=== PATIENT | male | born 1960 | race Caucasian/White ===

== ENCOUNTER 2023-03-20 12:08 | Emergency (ER) | payer BC, SELFPAY ==
[2023-03-20] VITALS (38 sets, daily range): BP systolic 113–160; BP diastolic 59–92; PULSE 29–141; RESP 12–29; TEMP 36.6; O2SAT 93–98; BMI 39.3
--- NOTE | 2023-03-20 12:23 | DI.RAD.S_ITS ---
PROCEDURE: XR CHEST 1V INDICATIONS: chest pain TECHNIQUE: One view of the chest was acquired. COMPARISON: None. FINDINGS: Surgical changes and devices: Median sternotomy wires are present and appear intact. If it related pad projects over the left chest Lungs and pleura: Lungs are clear. No pleural effusions or pneumothorax. Mediastinum: Mediastinal contours appear normal. Heart size is normal. Bones and chest wall: No suspicious bony lesions. Overlying soft tissues appear unremarkable. IMPRESSION: No acute cardiopulmonary abnormalities. Dictated by: Juventino Amaya M.D. on 03/20/2023 at 13:23 Approved by: Juventino Amaya M.D. on 03/20/2023 at 13:23
--- NOTE | 2023-03-20 12:49 | ED_ITS ---
HPI - Chest Pain <DO Rajni Kim Last Filed: 03/21/23 08:01> General Chief Complaint: Chest Pain Stated Complaint: artificial heart valve/chest pain Time Seen by Provider: 03/20/23 12:47 Source: patient Mode of arrival: Ambulatory Limitations: no limitations Limitations: no limitations History of Present Illness HPI narrative: This is a 63-year-old male with history of coronary artery disease with 2 stents in his LAD, prior aortic valve replacement with bovine valve and a AAA repair, patient also developed pulmonary emboli after his surgery and was on Coumadin for 3 months. Patient states he woke up this morning about 3:00 a.m. with left scapular pain radiating to the front left chest. He states not on the right side. He states he feels mildly short of breath. He is felt a little dizzy today. No nausea no vomiting. He denies any diaphoresis. He denies any issues with bowel movements or urination. No new swelling in his extremities. States he did notice Monday he had some double vision that was atypical and felt very lightheaded and went to [facility] where he was seen. Patient states heart rate tends to run in the 50-60 range he had 1 drop into the 28th during triage. He did feel symptomatic during that episode. Patient states these days he is on aspirin 81 mg daily, magnesium and potassium as well as losartan. He denies any active anti-lipid medication, no beta blockers or other antiarrhythmics. Patient states he is allergic to heparin he states he was on an alternative IV medication when he was in the hospital. This was when he was being converted to Coumadin. He no longer takes Coumadin daily he stopped after 3 months as recommended by his physician in his only on aspirin daily. No tobacco, alcohol or illicit. He lives in [place], he follows with [facility], operated by [facility] and his contact center specialist is Dr. Lofton. Related Data Allergies Allergy/AdvReac Type Severity Reaction Status Date / Time heparin Allergy Unknown Verified 03/20/23 12:21 Review of Systems <DO Rajni Kim Last Filed: 03/21/23 08:01> Review of Systems ROS Unobtainable: All systems reviewed & are unremarkable except as noted in HPI and below Patient History <DO Rajni Kim Last Filed: 03/21/23 08:01> Medical History (Updated 03/20/23 @ 17:37 by Jose Daniel Soria DO) CAD (coronary artery disease) Surgical History (Updated 03/20/23 @ 17:37 by Jose Daniel Soria DO) H/O aortic arch repair H/O aortic valve repair S/P coronary artery stent placement Social History Smoking Status: Never smoker Smoking Status: Never smoker Exam <Nettie Jordan DO - Last Filed: 03/21/23 08:01> Narrative Exam Narrative: GENERAL: Alert and oriented x three, obese male in mild distress HEENT: Head normocephalic, atraumatic, EOMI, pupils reactive, face symmetric, moist mucous membranes NECK: Supple, full range of motion CARDIOVASCULAR: Bradycardic but Regular rate and rhythm without murmurs, rubs or gallops. No JVD. No swelling bilateral lower extremities. RESPIRATORY: Breath sounds equal bilaterally, no wheezes rales or rhonchi. ABDOMEN: Soft, nontender. Nondistended. Normoactive bowel sounds all 4 quadrants. No guarding or rebound, rigidity, no mass : No CVA tenderness EXTREMITIES: Normal range of motion, no clubbing or edema. Neurovascularly intact NEUROLOGICAL: Cranial nerves II through XII grossly intact. Moving all extremities SKIN: Warm, dry, no petechiae, no rashes or lesions. Initial Vital Signs Initial Vital Signs: Vital Signs Temperature 97.9 F 03/20/23 12:15 Pulse Rate 64 03/20/23 12:15 Respiratory Rate 18 03/20/23 12:15 Blood Pressure 158/88 H 03/20/23 12:15 Pulse Oximetry 95 03/20/23 12:15 Oxygen Delivery Method Room Air 03/20/23 12:15 <Fer Addison DO - Last Filed: 03/21/23 03:12> Initial Vital Signs Initial Vital Signs: Vital Signs Temperature 97.9 F 03/20/23 12:15 Pulse Rate 64 03/20/23 12:15 Respiratory Rate 18 03/20/23 12:15 Blood Pressure 158/88 H 03/20/23 12:15 Pulse Oximetry 95 03/20/23 12:15 Oxygen Delivery Method Room Air 03/20/23 12:15 Course <Nettie Jordan DO - Last Filed: 03/21/23 08:01> Orders Ordered: Discontinued Medications Aspirin (Aspirin 81 Mg Chew Tab) 324 mg PO NOW ONE Stop: 03/20/23 12:24 Last Admin: 03/20/23 13:12 Dose: 162 mg Documented By: ST Atropine Sulfate (Atropine 1 Mg/10 Ml Syringe) 0.5 mg IV NOW ONE Stop: 03/20/23 13:08 Last Admin: 03/20/23 13:27 Dose: 0.5 mg Documented By: ST Sodium Chloride (Normal Saline 0.9%) 1,000 mls @ 150 mls/hr IV CONT KEDAR Last Infusion: 03/20/23 21:40 Dose: 0 mls/hr Documented By: Admin: 03/20/23 15:19 Dose: 150 mls/hr Documented By: Morphine Sulfate (Morphine 4 Mg/Ml Inj) 4 mg IV NOW ONE Stop: 03/20/23 13:07 Last Admin: 03/20/23 13:13 Dose: 4 mg Documented By: Morphine Sulfate (Morphine 4 Mg/Ml Inj) 4 mg IV NOW ONE Stop: 03/20/23 15:02 Last Admin: 03/20/23 15:13 Dose: 4 mg Documented By: Nitroglycerin (Nitroglycerin 0.4 Mg Sl Tab) 0.4 mg SL [id number] PRN PRN Reason: chest pain Vital Signs Vital signs: Vital Signs - 8 hr 03/20/23 19:30 03/20/23 19:31 03/20/23 19:31 Pulse Rate 44 L 42 L Respiratory Rate 29 H 18 Blood Pressure 115/59 L Pulse Oximetry 96 97 03/20/23 20:00 03/20/23 20:01 03/20/23 20:01 Pulse Rate 45 L 44 L Respiratory Rate 27 H 26 H Blood Pressure 140/64 Pulse Oximetry 96 96 03/20/23 20:30 03/20/23 21:00 03/20/23 21:06 Pulse Rate 42 L 74 Respiratory Rate 16 22 Blood Pressure 145/60 H Pulse Oximetry 94 94 03/20/23 21:06 Pulse Rate 50 L Respiratory Rate 14 Blood Pressure Pulse Oximetry 95 <DO Rajni Cornejo Last Filed: 03/21/23 03:12> Orders Ordered: Discontinued Medications Aspirin (Aspirin 81 Mg Chew Tab) 324 mg PO NOW ONE Stop: 03/20/23 12:24 Last Admin: 03/20/23 13:12 Dose: 162 mg Documented By: ST Atropine Sulfate (Atropine 1 Mg/10 Ml Syringe) 0.5 mg IV NOW ONE Stop: 03/20/23 13:08 Last Admin: 03/20/23 13:27 Dose: 0.5 mg Documented By: ST Sodium Chloride (Normal Saline 0.9%) 1,000 mls @ 150 mls/hr IV CONT KEDAR Last Infusion: 03/20/23 21:40 Dose: 0 mls/hr Documented By: Admin: 03/20/23 15:19 Dose: 150 mls/hr Documented By: ST Morphine Sulfate (Morphine 4 Mg/Ml Inj) 4 mg IV NOW ONE Stop: 03/20/23 13:07 Last Admin: 03/20/23 13:13 Dose: 4 mg Documented By: ST Morphine Sulfate (Morphine 4 Mg/Ml Inj) 4 mg IV NOW ONE Stop: 03/20/23 15:02 Last Admin: 03/20/23 15:13 Dose: 4 mg Documented By: ST Nitroglycerin (Nitroglycerin 0.4 Mg Sl Tab) 0.4 mg SL [id number] PRN PRN Reason: chest pain Vital Signs Vital signs: Vital Signs - 8 hr 03/20/23 19:30 03/20/23 19:31 03/20/23 19:31 Pulse Rate 44 L 42 L Respiratory Rate 29 H 18 Blood Pressure 115/59 L Pulse Oximetry 96 97 03/20/23 20:00 03/20/23 20:01 03/20/23 20:01 Pulse Rate 45 L 44 L Respiratory Rate 27 H 26 H Blood Pressure 140/64 Pulse Oximetry 96 96 03/20/23 20:30 03/20/23 21:00 03/20/23 21:06 Pulse Rate 42 L 74 Respiratory Rate 16 22 Blood Pressure 145/60 H Pulse Oximetry 94 94 03/20/23 21:06 Pulse Rate 50 L Respiratory Rate 14 Blood Pressure Pulse Oximetry 95 MDM - Chest Pain <Nettie Jordan DO - Last Filed: 03/21/23 08:01> Lab Data 03/20/23 12:39 03/20/23 12:39 Labs: Lab Results 03/20/23 03/20/23 03/20/23 Range/Units 12:39 12:39 12:39 WBC 4.5 (4.5-11.0) X10^3/uL RBC 4.89 (4.5-5.9) X10^6/uL Hgb 16.5 (13.5-17.5) g/dL Hct 46.1 (41-53) % MCV 94.3 (80-100) fL MCH 33.7 (26-34) PG MCHC 35.8 (30-36) % RDW 13.1 (11.6-14.8) % Plt Count 193 (150-400) X10^3/uL Neut % (Auto) 53.4 (50-75) % Lymph % (Auto) 31.7 (25-40) % Barber % (Auto) 13.3 (3-14) % Eos % (Auto) 1.0 L (2-4) % Baso % (Auto) 0.6 (0-2) % Neut # (Auto) 2400 (7464-7266) /uL Lymph # (Auto) 1400 (8586-3731) /uL Barber # (Auto) 600 (0-900) /uL Eos # (Auto) 0 (0-450) /uL Baso # (Auto) 0 (0-100) /uL PT 12.9 H (10.1-12.7) SECONDS INR 1.1 (0.9-1.3) APTT 26 (26-36) SECONDS D-Dimer (<500) ng/ml Sodium 135 L (137-145) mmol/L Potassium 4.0 (3.4-5.1) mmol/L Chloride 104 (98-107) mmol/L Carbon Dioxide 23 (22-32) mmol/L BUN 20 (9-20) mg/dL Creatinine 1.02 (0.66-1.25) mg/dL Estimated GFR > 60 (>60) mL/min BUN/Creatinine Ratio 19.6 (6-22) Glucose 101 (80-110) mg/dL Calcium 9.3 (8.4-10.2) mg/dL Magnesium 2.1 (1.6-2.3) mg/dL Total Bilirubin 1.3 (0.2-1.3) mg/dL AST 94 H (17-59) IU/L ALT 157 H (<50) IU/L Alkaline Phosphatase 80 (38-126) U/L Total Creatine Kinase 108 (55-170) U/L Troponin I < 0.012 (0.01-0.034) ng/mL NT-Pro-B Natriuret Pep (<125) pg/mL Total Protein 8.0 (6.3-8.2) g/dL Albumin 4.6 (3.5-5.0) g/dL Globulin 3.4 (1.7-4.1) g/dL Albumin/Globulin Ratio 1.4 (1.0-2.8) Lipase 120 (23-300) U/L 03/20/23 03/20/23 03/20/23 Range/Units 12:39 12:39 14:41 WBC (4.5-11.0) X10^3/uL RBC (4.5-5.9) X10^6/uL Hgb (13.5-17.5) g/dL Hct (41-53) % MCV (80-100) fL MCH (26-34) PG MCHC (30-36) % RDW (11.6-14.8) % Plt Count (150-400) X10^3/uL Neut % (Auto) (50-75) % Lymph % (Auto) (25-40) % Barber % (Auto) (3-14) % Eos % (Auto) (2-4) % Baso % (Auto) (0-2) % Neut # (Auto) (8810-9228) /uL Lymph # (Auto) (3032-2143) /uL Barber # (Auto) (0-900) /uL Eos # (Auto) (0-450) /uL Baso # (Auto) (0-100) /uL PT (10.1-12.7) SECONDS INR (0.9-1.3) APTT (26-36) SECONDS D-Dimer 1372 H (<500) ng/ml Sodium (137-145) mmol/L Potassium (3.4-5.1) mmol/L Chloride (98-107) mmol/L Carbon Dioxide (22-32) mmol/L BUN (9-20) mg/dL Creatinine (0.66-1.25) mg/dL Estimated GFR (>60) mL/min BUN/Creatinine Ratio (6-22) Glucose (80-110) mg/dL Calcium (8.4-10.2) mg/dL Magnesium (1.6-2.3) mg/dL Total Bilirubin (0.2-1.3) mg/dL AST (17-59) IU/L ALT (<50) IU/L Alkaline Phosphatase (38-126) U/L Total Creatine Kinase (55-170) U/L Troponin I < 0.012 (0.01-0.034) ng/mL NT-Pro-B Natriuret Pep 51 (<125) pg/mL Total Protein (6.3-8.2) g/dL Albumin (3.5-5.0) g/dL Globulin (1.7-4.1) g/dL Albumin/Globulin Ratio (1.0-2.8) Lipase (23-300) U/L Urine Dip Bedside Urine Glucose Negative Bedside Urine Bilirubin - Negative Bedside Urine Ketone +/- 5 Urine Specific [place] 1.010 Bedside Urine Occult Blood - Negative Bedside Urine pH 6.0 Bedside Urine Protein - Negative Bedside Urine Urobilinogen - Negative Bedside Urine Nitrite - Negative Bedside Urine Leukocytes - Negative Esterase Imaging Data Chest x-ray: Radiologist's Impression: [address] [address] XRay Report Signed Patient: Gamaliel Pineda MR#: [id number] : 1960 Acct:[id number] Age/Sex: 63 / M Date of Service: 03/20/23 Loc: ED Accession Number: [id number] ?? Procedure: XR chest 1V Ordering Provider: Nettie Jordan D.O. PROCEDURE:? XR CHEST 1V ? INDICATIONS:? chest pain ? TECHNIQUE:? One view of the chest was acquired.? ? COMPARISON:? None. ? FINDINGS:? ? Surgical changes and devices:? Median sternotomy wires are present and appear intact.? If it related pad projects over the left chest ? Lungs and pleura:? Lungs are clear.? No pleural effusions or pneumothorax.? ? Mediastinum:? Mediastinal contours appear normal.? Heart size is normal.? ? Bones and chest wall:? No suspicious bony lesions.? Overlying soft tissues appear unremarkable.? ? IMPRESSION:? No acute cardiopulmonary abnormalities. ? ? Dictated by: Juventino Amaya M.D. on 03/20/2023 at 13:23 ? ? Approved by: Juventino Amaya M.D. on 03/20/2023 at 13:23?? CT scan - chest: Radiologist's Impression: [address] [address] [address] Scan Report Signed Patient: Gamaliel Pineda MR#: [id number] : 1960 Acct:[id number] Age/Sex: 63 / M Date of Service: 03/20/23 Loc: ED Accession Number: [id number] ?? Procedure: CT angio chest PE protocol Ordering Provider: Nettie Jordan D.O. PROCEDURE:? CT ANGIO CHEST PE PROTOCOL ? INDICATIONS:? chest pain, hx PE, hx aortic aneurysm w/ repair ? TECHNIQUE:? After the administration of intravenous contrast, 2 mm thick sections acquired from the pulmonary apices to the posterior costophrenic angles.? 3-dimensional maximum intensity projection (MIP) coronal and sagittal reformats were then acquired through the thorax.? For radiation dose reduction, the following was used:? automated exposure control, adjustment of mA and/or kV according to patient size.? ? COMPARISON:? [facility], CR, XR CHEST 1V, 03/20/2023, 12:47. ? FINDINGS: ? Image quality:? Diagnostic.? There is suboptimal timing of contrast bolus limiting evaluation of the pulmonary arteries. The pulmonary arteries were adequately visualized to level of the proximal segmental pulmonary arteries. ? Pulmonary arteries:? Pulmonary arteries are normal in size, and demonstrate no intraluminal filling defects to suggest central pulmonary embolism.? ? ? Lungs and pleura:? Lung volumes are diminished.? Patchy ground-glass opacities noted in the bilateral hemithoraces.? No focal consolidation.? Dependent atelectasis.? Minimal smooth septal thickening.? Findings more pronounced in the upper lobes/apices.? No septal nodularity.? Trace bilateral pleural effusions.? No pneumothorax.? ? Central and peripheral airways are patent with mild perihilar airway thickening. ? Mediastinum:? Cardiomegaly.? No pericardial effusion.? Coronary artery calcifications.? Postsurgical changes of prior bypass procedure.? No mediastinal or hilar ad enopathy.? Thoracic aorta is normal in caliber and enhancement.? Esophagus is normal in caliber, without hiatal hernia.? ? ? Bones and chest wall:? No suspicious bony lesions.? Ribs and thoracic spine appear intact throughout.? Thyroid gland is unremarkable.? No axillary or supraclavicular adenopathy.? Multiple median sternotomy wires are intact.? No substernal fluid collections.? No acute compression fractures. ? Abdomen:? Visualized upper abdominal solid organs appear normal in the early arterial phase of enhancement.? Status post cholecystectomy.? ? IMPRESSION:? ? 1. Within the limits of this examination, no acute pulmonary emboli identified. ? 2. Cardiomegaly with mild diffuse ground-glass opacities, perihilar airway thickening, and smooth septal thickening suggestive of mild pulmonary edema.? There are low lung volumes with dependent atelectasis.? Otherwise, no evidence for focal airspace disease/consolidation. ? 3. Atherosclerosis. ? Other chronic findings as above.? ? ? Dictated by: Juventino Amaya M.D. on 03/20/2023 at 15:26 ? ? Approved by: Juventino Amaya M.D. on 03/20/2023 at 15:34?? ECG Data Attestation: I personally reviewed and interpreted this ECG as follows: Prior ECG tracings: not available for review Interpretation: Sinus bradycardia rate of 57 FL 126 QRS of 96 and QTC of 438. No acute ST elevation appreciated patient has pain depression in lateral leads V3 through V6 inverted T-waves in 1 aVL. Patient does not have priors for comparison. Patient in lead rhythm strip does appear to have P waves marching throughout no dropped beats are appreciated not as appreciable throughout all other leads Attempting to obtain prior from [facility], last EKG was 2019. Sinus bradycardia rate of 46 FL 176 QRS of 92 QTC 383. Patient does have ST depression in lateral leads. One and aVL are also inverted. EKG3. MDM Narrative Medical decision making narrative: This is a 63-year-old male with known cardiac history with known coronary artery disease and LAD stents x2, prior aneurysm per prior in the thoracic cavity, prior pulmonary embolism after this as well as aortic valve replacement which is bovine. Patient developed chest pain radiating from the left scapular area to the left front of his chest at 3:00 a.m. this morning he has been awake since then. Patient does have ST depression in lateral leads was able to obtain an EKG from [address] depression. Patient states that was prior to his surgery. He noted that he had cardiac arrest after receiving nitro so was given morphine for his chest pain x2 which was helpful. Patient during his stay had bradycardia sometimes as low as 28 for admitted or to and then he typically 40s to 60s. Patient states his normal baseline is 50s to 60s. He did have multiple episodes in the 30s as well. He did not feel symptomatic in the 30s and 20s. He received 1 dose of atropine this did not seem to be immediately helpful but has had improvement since then. Patient does not take any beta blockers, denies any other antiarrhythmics her medications that would affect his heart rate. He states he takes aspirin, Mag, potassium and losartan as his only medications. Case discussed with Dr. Stout ([facility]) cardiology: Patient's EKG 1. And 2 as well as old EKG from 2019 until a strips were sent. Recommend observation, appears to have brief sinus pause and recommend echo was stress test tomorrow if stable then ZIO as outpatient otherwise to recontact. Dr: Yang: Evaluated patient here in the department patient had dipped down into the 30s. Asked for 3rd EKG, patient case was discussed and he feels more comfortable with patient being transferred. We will try [facility]. I did update Dr. Stout with cardiology. Patient has had a single dose of atropine did have some improvement of his heart rate but has been pretty consistently 50s to 60s sometimes into the 40s. His lo west was 28 prior to atropine for about a minute. Patient did feel lightheaded. He is not had syncope. He has maintained his blood pressure so far. Patient did have 2 doses of morphine for chest pain which significantly improved his symptoms. Nitro was not voided as he stated he had a cardiac arrest after nitro in the past. Reviewed patients findings, discussed all findings. Patient feels improved. He is agreeable to transfer. Spoke with hospitalist, Dr. Valentine who accepts for transfer. Waiting for bed assignment. 1999 (Azael) soon after Dr. Jordan's departure we received bed assignment and EMS was called for transport. Patient left before my involvement. <Fer Addison, DO - Last Filed: 03/21/23 03:12> Lab Data Labs: Lab Results 03/20/23 03/20/23 03/20/23 Range/Units 12:39 12:39 12:39 WBC 4.5 (4.5-11.0) X10^3/uL RBC 4.89 (4.5-5.9) X10^6/uL Hgb 16.5 (13.5-17.5) g/dL Hct 46.1 (41-53) % MCV 94.3 (80-100) fL MCH 33.7 (26-34) PG MCHC 35.8 (30-36) % RDW 13.1 (11.6-14.8) % Plt Count 193 (150-400) X10^3/uL Neut % (Auto) 53.4 (50-75) % Lymph % (Auto) 31.7 (25-40) % Barber % (Auto) 13.3 (3-14) % Eos % (Auto) 1.0 L (2-4) % Baso % (Auto) 0.6 (0-2) % Neut # (Auto) 2400 (1961-8005) /uL Lymph # (Auto) 1400 (7133-8392) /uL Barber # (Auto) 600 (0-900) /uL Eos # (Auto) 0 (0-450) /uL Baso # (Auto) 0 (0-100) /uL PT 12.9 H (10.1-12.7) SECONDS INR 1.1 (0.9-1.3) APTT 26 (26-36) SECONDS D-Dimer (<500) ng/ml Sodium 135 L (137-145) mmol/L Potassium 4.0 (3.4-5.1) mmol/L Chloride 104 (98-107) mmol/L Carbon Dioxide 23 (22-32) mmol/L BUN 20 (9-20) mg/dL Creatinine 1.02 (0.66-1.25) mg/dL Estimated GFR > 60 (>60) mL/min BUN/Creatinine Ratio 19.6 (6-22) Glucose 101 (80-110) mg/dL Calcium 9.3 (8.4-10.2) mg/dL Magnesium 2.1 (1.6-2.3) mg/dL Total Bilirubin 1.3 (0.2-1.3) mg/dL AST 94 H (17-59) IU/L ALT 157 H (<50) IU/L Alkaline Phosphatase 80 (38-126) U/L Total Creatine Kinase 108 (55-170) U/L Troponin I < 0.012 (0.01-0.034) ng/mL NT-Pro-B Natriuret Pep (<125) pg/mL Total Protein 8.0 (6.3-8.2) g/dL Albumin 4.6 (3.5-5.0) g/dL Globulin 3.4 (1.7-4.1) g/dL Albumin/Globulin Ratio 1.4 (1.0-2.8) Lipase 120 (23-300) U/L 03/20/23 03/20/23 03/20/23 Range/Units 12:39 12:39 14:41 WBC (4.5-11.0) X10^3/uL RBC (4.5-5.9) X10^6/uL Hgb (13.5-17.5) g/dL Hct (41-53) % MCV (80-100) fL MCH (26-34) PG MCHC (30-36) % RDW (11.6-14.8) % Plt Count (150-400) X10^3/uL Neut % (Auto) (50-75) % Lymph % (Auto) (25-40) % Barber % (Auto) (3-14) % Eos % (Auto) (2-4) % Baso % (Auto) (0-2) % Neut # (Auto) (9099-0279) /uL Lymph # (Auto) (6346-8003) /uL Barber # (Auto) (0-900) /uL Eos # (Auto) (0-450) /uL Baso # (Auto) (0-100) /uL PT (10.1-12.7) SECONDS INR (0.9-1.3) APTT (26-36) SECONDS D-Dimer 1372 H (<500) ng/ml Sodium (137-145) mmol/L Potassium (3.4-5.1) mmol/L Chloride (98-107) mmol/L Carbon Dioxide (22-32) mmol/L BUN (9-20) mg/dL Creatinine (0.66-1.25) mg/dL Estimated GFR (>60) mL/min BUN/Creatinine Ratio (6-22) Glucose (80-110) mg/dL Calcium (8.4-10.2) mg/dL Magnesium (1.6-2.3) mg/dL Total Bilirubin (0.2-1.3) mg/dL AST (17-59) IU/L ALT (<50) IU/L Alkaline Phosphatase (38-126) U/L Total Creatine Kinase (55-170) U/L Troponin I < 0.012 (0.01-0.034) ng/mL NT-Pro-B Natriuret Pep 51 (<125) pg/mL Total Protein (6.3-8.2) g/dL Albumin (3.5-5.0) g/dL Globulin (1.7-4.1) g/dL Albumin/Globulin Ratio (1.0-2.8) Lipase (23-300) U/L Urine Dip Bedside Urine Glucose Negative Bedside Urine Bilirubin - Negative Bedside Urine Ketone +/- 5 Urine Specific [place] 1.010 Bedside Urine Occult Blood - Negative Bedside Urine pH 6.0 Bedside Urine Protein - Negative Bedside Urine Urobilinogen - Negative Bedside Urine Nitrite - Negative Bedside Urine Leukocytes - Negative Esterase MDM Narrative Medical decision making narrative: This is a 63-year-old male with known cardiac history with known coronary artery disease and LAD stents x2, prior aneurysm per prior in the thoracic cavity, prio r pulmonary embolism after this as well as aortic valve replacement which is bovine. Patient developed chest pain radiating from the left scapular area to the left front of his chest at 3:00 a.m. this morning he has been awake since then. Patient does have ST depression in lateral leads was able to obtain an EKG from [address] depression. Patient states that was prior to his surgery. He noted that he had cardiac arrest after receiving nitro so was given morphine for his chest pain x2 which was helpful. Patient during his stay had bradycardia sometimes as low as 28 for admitted or to and then he typically 40s to 60s. Patient states his normal baseline is 50s to 60s. He did have multiple episodes in the 30s as well. He did not feel symptomatic in the 30s and 20s. He received 1 dose of atropine this did not seem to be immediately helpful but has had improvement since then. Patient does not take any beta blockers, denies any other antiarrhythmics her medications that would affect his heart rate. He states he takes aspirin, Mag, potassium and losartan as his only medications. Case discussed with Dr. Stout ([facility]) cardiology: Patient's EKG 1. And 2 as well as old EKG from 2019 until a strips were sent. Recommend observation, appears to have brief sinus pause and recommend echo was stress test tomorrow if stable then ZIO as outpatient otherwise to recontact. Dr: Yang: Evaluated patient here in the department patient had dipped down into the 30s. Asked for 3rd EKG, patient case was discussed and he feels more comfortable with patient being transferred. We will try [facility]. I did update Dr. Stout with cardiology. Patient has had a single dose of atropine did have some improvement of his heart rate but has been pretty consistently 50s to 60s sometimes into the 40s. His lowest was 28 prior to atropine for about a minute. Patient did feel lightheaded. He is not had syncope. He has maintained his blood pressure so far. Patient did have 2 doses of morphine for chest pain which significantly improved his symptoms. Nitro was not voided as he stated he had a cardiac arrest after nitro in the past. Reviewed patients findings, discussed all findings. Patient feels improved. He is agreeable to transfer. Spoke with hospitalist, Dr. Valentine who accepts for transfer. Waiting for bed assignment. 1999 ([facility]) soon after Dr. Jordan's departure we received bed assignment and EMS was called for transport. Patient left before my invovlement Critical Care Time <Nettie Jordan, DO - Last Filed: 03/21/23 08:01> Critical Care Time Attestation: The high probability of a clinically significant, sudden or life threatening deterioration of the [cardiac,pulm] system(s) required my full and direct attention, intervention and personal management. The aggregate critical care time was [] minutes. This time is in addition to time spent performing reported procedures but includes the following: [x] Data Review and interpretation [x] Patient assessment and monitoring of vital signs [x] Documentation [x] Medication orders and management <Fer Addison, - Last Filed: 03/21/23 03:12> Critical Care Time Critical Care Time: Yes Total Critical Care Time: 45 Attestation: The high probability of a clinically significant, sudden or life threatening deterioration of the [cardiac,pulm] system(s) required my full and direct attention, intervention and personal management. The aggregate critical care time was [45] minutes. This time is in addition to time spent performing reported procedures but includes the following: [x] Data Review and interpretation [x] Patient assessment and monitoring of vital signs [x] Documentation [x] Medication orders and management Discharge Plan Departure Patient Disposition: [facility] Clinical Impression: Chest pain, Bradycardia
[2023-03-20 12:57] LABS: Add Manual Diff / Slide Review NO; Basophils Absolute Auto 0 /uL (0-100); Basophils Percent Auto 0.6 % (0-2); Eosinophils Absolute Auto 0 /uL (0-450); Hematocrit 46.1 % (41-53); Hemoglobin 16.5 g/dL (13.5-17.5); Lymphocytes Absolute Auto 1400 /uL (1100-4500); Lymphocytes Percent Auto 31.7 % (25-40); Mean Corpuscular HGB Conc 35.8 % (30-36); Mean Corpuscular Hemoglobin 33.7 PG (26-34); Mean Corpuscular Volume 94.3 fL (80-100); Monocytes Absolute Auto 600 /uL (0-900); Monocytes Percent Auto 13.3 % (3-14); Neutrophils Absolute Auto 2400 /uL (1500-7000); Neutrophils Percent Auto 53.4 % (50-75); Platelet Count 193 X10^3/uL (150-400); Red Blood Cell Count 4.89 X10^6/uL (4.5-5.9); Red Cell Distribution Width 13.1 % (11.6-14.8); White Blood Cell Count 4.5 X10^3/uL (4.5-11.0)
--- NOTE | 2023-03-20 12:57 | PC.NURSE ---
Patient has intermittent bradycardia down to 28bpm, patient states he feels palpitations and at times clenches his chest. Rating discomfort at 7/10. Patient placed on Zoll pads at bedside. Dr Jordan aware
[2023-03-20 13:07] LABS: INR 1.1 (0.9-1.3); Prothrombin Time 12.9 SECONDS (10.1-12.7)
[2023-03-20 13:09] LABS: D Dimer 1372 ng/ml (<500)
[2023-03-20 13:10] LABS: PTT Partial Thromboplastin Tim 26 SECONDS (26-36)
[2023-03-20] MEDS: ASPIRIN 81 MG CHEW TAB 324 MG PO (13:12)
[2023-03-20] MEDS: MORPHINE 4 MG/ML INJ IV ×2 (13:13→15:13)
[2023-03-20 13:15] LABS: Alanine Aminotransferase 157 IU/L (<50); Albumin 4.6 g/dL (3.5-5.0); Albumin Globulin Ratio 1.4 (1.0-2.8); Alkaline Phosphatase 80 U/L (38-126); Aspartate Aminotransferase 94 IU/L (17-59); BUN Creatinine Ratio 19.6 (6-22); Bilirubin Total 1.3 mg/dL (0.2-1.3); Blood Urea Nitrogen 20 mg/dL (9-20); Calcium 9.3 mg/dL (8.4-10.2); Carbon Dioxide 23 mmol/L (22-32); Chloride 104 mmol/L (98-107); Creatine Kinase 108 U/L (55-170); Estimated Glomerular Filt Rate > 60 mL/min (>60); Globulin 3.4 g/dL (1.7-4.1); Glucose 101 mg/dL (80-110); HEMOLYSIS < 15 (0-50); Lipase 120 U/L (23-300); Magnesium 2.1 mg/dL (1.6-2.3); Sodium 135 mmol/L (137-145)
--- NOTE | 2023-03-20 13:15 | DI.CT.S_ITS ---
PROCEDURE: CT ANGIO CHEST PE PROTOCOL INDICATIONS: chest pain, hx PE, hx aortic aneurysm w/ repair TECHNIQUE: After the administration of intravenous contrast, 2 mm thick sections acquired from the pulmonary apices to the posterior costophrenic angles. 3-dimensional maximum intensity projection (MIP) coronal and sagittal reformats were then acquired through the thorax. For radiation dose reduction, the following was used: automated exposure control, adjustment of mA and/or kV according to patient size. COMPARISON: [facility], CR, XR CHEST 1V, 03/20/2023, 12:47. FINDINGS: Image quality: Diagnostic. There is suboptimal timing of contrast bolus limiting evaluation of the pulmonary arteries. The pulmonary arteries were adequately visualized to level of the proximal segmental pulmonary arteries. Pulmonary arteries: Pulmonary arteries are normal in size, and demonstrate no intraluminal filling defects to suggest central pulmonary embolism. Lungs and pleura: Lung volumes are diminished. Patchy ground-glass opacities noted in the bilateral hemithoraces. No focal consolidation. Dependent atelectasis. Minimal smooth septal thickening. Findings more pronounced in the upper lobes/apices. No septal nodularity. Trace bilateral pleural effusions. No pneumothorax. Central and peripheral airways are patent with mild perihilar airway thickening. Mediastinum: Cardiomegaly. No pericardial effusion. Coronary artery calcifications. Postsurgical changes of prior bypass procedure. No mediastinal or hilar adenopathy. Thoracic aorta is normal in caliber and enhancement. Esophagus is normal in caliber, without hiatal hernia. Bones and chest wall: No suspicious bony lesions. Ribs and thoracic spine appear intact throughout. Thyroid gland is unremarkable. No axillary or supraclavicular adenopathy. Multiple median sternotomy wires are intact. No substernal fluid collections. No acute compression fractures. Abdomen: Visualized upper abdominal solid organs appear normal in the early arterial phase of enhancement. Status post cholecystectomy. IMPRESSION: 1. Within the limits of this examination, no acute pulmonary emboli identified. 2. Cardiomegaly with mild diffuse ground-glass opacities, perihilar airway thickening, and smooth septal thickening suggestive of mild pulmonary edema. There are low lung volumes with dependent atelectasis. Otherwise, no evidence for focal airspace disease/consolidation. 3. Atherosclerosis. Other chronic findings as above. Dictated by: Juventino Amaya M.D. on 03/20/2023 at 15:26 Approved by: Juventino Amaya M.D. on 03/20/2023 at 15:34
[2023-03-20 13:24] LABS: Troponin I < 0.012 ng/mL (0.01-0.034)
[2023-03-20] MEDS: ATROPINE 1 MG/10 ML SYRINGE 0.5 MG IV (13:27)
--- NOTE | 2023-03-20 13:32 | PC.NURSE ---
Pt domingo to 28 with lightheadedness. Remained at 38-39 for over a minute. Provider Julian PRICE notified, order to give 0.5 Atropine.
[2023-03-20 14:07] LABS: NT-proBNP (BNP-Adult 18+) 51 pg/mL (<125)
[2023-03-20] MEDS: SODIUM CHLORIDE 0.9% 1,000 ML 150 ML IV (15:19)
[2023-03-20 15:26] LABS: Troponin I < 0.012 ng/mL (0.01-0.034)
--- NOTE | 2023-03-20 15:40 | PC.NURSE ---
Pt remains domingo mainly in the 40s, alert and oriented. Endorses mild ongoing chest pain but no new or
--- NOTE | 2023-03-20 15:40 | PC.NURSE ---
Pt remains domingo mainly in the 40s, alert and oriented. Endorses mild ongoing chest pain but no new concerning symptoms. A&Ox4. aware.
--- NOTE | 2023-03-20 17:12 | PC.NURSE ---
Hospitalist at bedside. Pt continues to be A&Ox4.
--- NOTE | 2023-03-20 17:23 | PM.CN ---
History of Present Illness Consult details Date Patient Seen: 03/20/23 Time Patient Seen: 17:05 Chief complaint: artificial heart valve/chest pain Narrative: This is a 63 year old male with PMH of CAD ([place] x2, stents x2 (2004.2015), prior aortic valve and aneurysm repair who presented to the emergency room today with an episode of left shoulder pain and ongoing intermittent dizziness. Patient was in an OSH ER a couple of days ago with light headedness, discharged home after evaluation. His lightheadedness has continued. It is intermittent, associated with low pulse rate which he has been checking. He is visiting from [place]. This morning he developed left sided back and shoulder discomfort, which he states feels like a pulled muscle. He denies any substernal pain, nausea, vomiting, diaphoresis, abdominal pain. He states the pain is noticible, but not severe like his prior MIs. He denies LE edema, shortness of breath or dyspnea on exertion. In the emergency room, he was bradycardic as low as a rate of 28. This was capturued on telemetry with no obvious blocks but he has been having frequent bigeminy. Initial and 2 hour troponin were negative. He was given atropine which did appear to help initially. Labs notable for D-dimer 1372, CTA was negative for PE, possibly with some pulmonary edema. Medicine was asked to evaluate for admission. Cardiology over the phone had recommended admission for observation with stress testing and echocardiogram. During my evaluation his rate dropped as low as 30s with lightheadedness on the stretcher without movement. It was captured on an EKG rhythm strip that shows frequent bigeminy, but no obvious heart block. In extensive review of his telemetry, it is difficult to tell but there appear to be occasional skipped beats but given low amplitude cannot definitively tell if there is a heart block. Based on the patient's ongoing symptomatic bradycardia, that is highly likely cardiologic in origin, along with no reversible etiologies that are apparent (no infection, negative troponin, or beta nadine therapy) with inability to manage symptomatic bradycardia in the inpatient setting reliably (no temporary pacing ability, in house cardiology, or ability for PPM), I do recommend transfer for cardiology evaluation and higher level of care. Meds Home Medications and Allergies Allergies Allergy/AdvReac Type Severity Reaction Status Date / Time heparin Allergy Unknown Verified 03/20/23 12:21 Review of Systems Review of Systems Narrative: All other systems reviewed with the patient and are negative unless otherwise stated. Exam Vital Signs (past 8 hours): - 03/20/23 12:15 03/20/23 12:27 03/20/23 12:30 Temperature 97.9 F Pulse Rate 64 141 H 57 L Respiratory Rate 18 Blood Pressure 158/88 H Pulse Oximetry 95 Oxygen Delivery Method Room Air 03/20/23 12:41 03/20/23 12:41 03/20/23 13:00 Temperature Pulse Rate 57 L 58 L Respiratory Rate Blood Pressure 144/92 H Pulse Oximetry 96 94 Oxygen Delivery Method 03/20/23 13:01 03/20/23 13:01 03/20/23 13:30 Temperature Pulse Rate 59 L 29 L Respiratory Rate Blood Pressure 160/63 H Pulse Oximetry 94 96 Oxygen Delivery Method 03/20/23 13:31 03/20/23 13:31 03/20/23 14:00 Temperature Pulse Rate 39 L 54 L Respiratory Rate 20 Blood Pressure 152/67 H Pulse Oximetry 94 97 Oxygen Delivery Method 03/20/23 14:01 03/20/23 14:01 03/20/23 14:30 Temperature Pulse Rate 52 L 55 L Respiratory Rate 20 12 Blood Pressure 137/72 Pulse Oximetry 98 97 Oxygen Delivery Method 03/20/23 14:31 03/20/23 14:31 03/20/23 15:00 Temperature Pulse Rate 55 L 50 L Respiratory Rate 16 18 Blood Pressure 140/67 Pulse Oximetry 96 96 Oxygen Delivery Method 03/20/23 15:01 03/20/23 15:01 03/20/23 15:30 Temperature Pulse Rate 54 L 56 L Respiratory Rate 20 20 Blood Pressure 154/70 H Pulse Oximetry 96 97 Oxygen Delivery Method 03/20/23 15:31 03/20/23 15:31 03/20/23 16:00 Temperature Pulse Rate 54 L 53 L Respiratory Rate 22 20 Blood Pressure 141/69 H Pulse Oximetry 97 95 Oxygen Delivery Method 03/20/23 16:01 03/20/23 16:01 03/20/23 16:30 Temperature Pulse Rate 54 L 43 L Respiratory Rate 16 24 Blood Pressure 131/69 Pulse Oximetry 93 95 Oxygen Delivery Method 03/20/23 16:31 03/20/23 16:31 03/20/23 17:00 Temperature Pulse Rate 50 L 42 L Respiratory Rate 20 17 Blood Pressure 143/64 H Pulse Oximetry 94 94 Oxygen Delivery Method 03/20/23 17:01 03/20/23 17:01 Temperature Pulse Rate 42 L Respiratory Rate 16 Blood Pressure 113/62 Pulse Oximetry 96 Oxygen Delivery Method Oxygen Delivery Method Room Air Narrative Exam Narrative: General:? Patient is well developed and well nourished, in no distress at this time. HEENT:? Normocephalic, atraumatic, extraocular muscles intact, oral pharynx is clear and mucous membranes are moist. Neck: supple and symmetric, trachea is midline, no cervical adenopathy. Negative for JVD Chest:? Normal AP diameter and contour without kyphoscoliosis, no tachypnea, equal chest rise bilaterally. Lungs:? CTA b/l no wheezing rhonchi or rales. Cardio:? Bradycardic with regular rhythm, no murmurs, rubs, or gallops Abdomen: S NT ND. No CVA tenderness. Musculoskeletal:? Muscle strength and tone are equal within normal limits, no deformity. Extremities: No edema or joint effusions. No cyanosis or clubbing. Skin:? Pale,? Warm to touch,dry and intact without rashes, ulcerations or petechiae.? Neuro:? Alert and orientated x3,? sensation to touch intact in all extremities, no gross deficits noted of cranial nerves. Psych:? Patient has a well-kept appearance, appropriate affect, mental status attitude thought context and judgment are appropriate for age. Objective ECG Impression: Marked sinus bradycardia Labs 03/20/23 12:39 03/20/23 12:39 Labs: Laboratory Results - last 24 hr 03/20/23 03/20/23 03/20/23 12:39 12:39 12:39 WBC 4.5 RBC 4.89 Hgb 16.5 Hct 46.1 MCV 94.3 MCH 33.7 MCHC 35.8 RDW 13.1 Plt Count 193 Neut % (Auto) 53.4 Lymph % (Auto) 31.7 [place] % (Auto) 13.3 Eos % (Auto) 1.0 L Baso % (Auto) 0.6 Neut # (Auto) 2400 Lymph # (Auto) 1400 [place] # (Auto) 600 Eos # (Auto) 0 Baso # (Auto) 0 PT 12.9 H INR 1.1 APTT 26 D-Dimer Sodium 135 L Potassium 4.0 Chloride 104 Carbon Dioxide 23 BUN 20 Creatinine 1.02 Estimated GFR > 60 BUN/Creatinine Ratio 19.6 Glucose 101 Calcium 9.3 Magnesium 2.1 Total Bilirubin 1.3 AST 94 H ALT 157 H Alkaline Phosphatase 80 Total Creatine Kinase 108 Troponin I < 0.012 NT-Pro-B Natriuret Pep Total Protein 8.0 Albumin 4.6 Globulin 3.4 Albumin/Globulin Ratio 1.4 Lipase 120 03/20/23 03/20/23 03/20/23 12:39 12:39 14:41 WBC RBC Hgb Hct MCV MCH MCHC RDW Plt Count Neut % (Auto) Lymph % (Auto) [place] % (Auto) Eos % (Auto) Baso % (Auto) Neut # (Auto) Lymph # (Auto) [place] # (Auto) Eos # (Auto) Baso # (Auto) PT INR APTT D-Dimer 1372 H Sodium Potassium Chloride Carbon Dioxide BUN Creatinine Estimated GFR BUN/Creatinine Ratio Glucose Calcium Magnesium Total Bilirubin AST ALT Alkaline Phosphatase Total Creatine Kinase Troponin I < 0.012 NT-Pro-B Natriuret Pep 51 Total Protein Albumin Globulin Albumin/Globulin Ratio Lipase PFSH Medical History (Updated 03/20/23 @ 17:37 by Jose Daniel Soria DO) CAD (coronary artery disease) Surgical History (Updated 03/20/23 @ 17:37 by Jose Daniel Soria DO) H/O aortic arch repair H/O aortic valve repair S/P coronary artery stent placement Tobacco & Substance Use Smoking Status: Never smoker Assessment & Plan Assessment & Plan narrative: 1. Symptomatic bradycardia and chest pain - Patient takes no beta blockers, in the setting of new chest pain given his prior CAD and extensive heart history, this is highly suggestive of a cardiac etiology leading to symptomatic bradycardia. - we are unable to reliably manage symptomatic bradycardia adquately in [facility], even more in the setting of no obvious reversible etiologies. - after atropine, patients bradycardia has returned along with symptoms (HR down to 30 again) - recommend transfer for higher level of care. - possible 2nd degree block on tele, but was low amplitude and not definitive. - possible CHF with pulmonary edema noted on CTA, consider furosemide but given dizziness and bradycardia hold off for now. 2. History of CAD, ascending aortic aneurysm and aortic arch and valve repair. - CTA was negative for any recurrence of aneurysm or pathology related to his prior repairs. 3. Obesity 4. Elevated transaminase elevations Code: Full, surrogate is patient's family Dispo: recommend higher level of care. I have utilized all available immediate resources to obtain, update, or review the patient's current medications. Additional history obtained via patient's family, ER provider. I have reviewed patient's EKG, rhythm strips, telemetry, labs, and imaging extensively. Discussed with ER provider and patient.
--- NOTE | 2023-03-20 21:40 | PC.NURSE ---
report given to CCT crew
== END 2023-03-20 21:40 | disposition short-term general hospital (02) ==
PROVIDERS: Emergency Medicine; Emergency Provider Emergency Medicine
DX: R07.9 Chest pain, unspecified (principal); R00.1 Bradycardia, unspecified; Z79.01 Long term (current) use of anticoagulants
CPT/HCPCS: 36415; 71045; 71275; 80053; 81003; 82550; 83690; 83735; 83880; 84484; 85025; 85379; 85610; 85730; 93005; 93010; 96361; 96374; 96375; 96376; 99285; 99291; J0461; J2270; Q9967